=== PATIENT | male | born 1960 | race Caucasian/White ===

== ENCOUNTER 2017-02-13 07:28 | Day surgery (SDC) | payer BC ==
[2017-02-13] MEDS ORDERED: MIDAZOLAM HCL 2MG/2ML VIAL IV ONE (16:27)
[2017-02-13] MEDS ORDERED: LIDOCAINE 2% MDV (20MG/ML) 20ML VIAL IV ONE (16:27)
[2017-02-13] MEDS ORDERED: PROPOFOL 10 MG/ML VIAL IV ONE (16:27)
--- NOTE | 2017-02-19 13:19 | Operative Note ---
DATE OF SURGERY: 02/13/2017 OPERATION: COLONOSCOPY with cold forceps polypectomy. PREOPERATIVE DIAGNOSIS: Personal history of colon polyps and hematuria, rule out occult GI malignancy. POSTOPERATIVE DIAGNOSIS: Sigmoid colon polyp, status post cold forceps polypectomy. PREPARATION QUALITY: Good. ESTIMATED BLOOD LOSS: Minimal. SPECIMENS: Sigmoid polyp. COMPLICATIONS: None apparent. PROCEDURE: After informed consent was obtained from the patient, he was placed in the left lateral decubitus position in the endoscopy suite, sedated and monitored by the department of anesthesia. Digital rectal exam revealed no palpable mass. A well-lubricated [id number] colonoscope was inserted into the rectum and advanced to the cecum. The ileocecal valve and appendiceal orifice and cecum were identified and were unremarkable. Preparation quality was good. The cecum, ascending colon, transverse colon, and descending colon were unremarkable. No polyps, mass lesions, inflammation, or diverticula were seen. There was a diminutive polyp in the sigmoid colon removed in piecemeal fashion with a cold forceps with minimal bleeding noted. The polyp was retrieved. The rectum was unremarkable in forward and in J-turn views. The endoscope was straightened, the rectal ampulla deflated, and the endoscope was removed. RECOMMENDATIONS: I would suggest the patient resume his medications and diet. He will require repeat exam most likely in 5 years based on tissue results. As always, thank you for allowing me to participate in the healthcare of your patients. CC: Rashi Lemus [facility]
== END 2017-02-13 09:20 | disposition home or self-care (01) ==
LOC: HOP 07:28
PROVIDERS: ATTEND Internal Medicine Gastroenterology
DX: Z09 Encounter for follow-up examination after completed treatment for conditions other than malignant neoplasm (principal); Z87.19 Personal history of other diseases of the digestive system; I10 Essential (primary) hypertension; E78.00 Pure hypercholesterolemia, unspecified